=== PATIENT | female | born 1975 | race Caucasian/White ===

== ENCOUNTER 2016-06-29 16:35 | Emergency (ER) | payer MEDICAID ==
[~2016-06-29] VITALS: Ht 157.5 cm; Wt 58.5 kg
[~2016-06-29 16:35] MED LIST: BEN50 PO; CEPH-443 PO; CIPR500T4 PO; HYDR-3498 PO; NITR-58 PO; OMEP20CA16 PO; PHEN-538 PO; PRED20TA PO; RANI150T9 PO; UDMYL PO
[2016-06-29 16:56] VITALS: Ht 157.5 cm; Wt 58.5 kg
--- NOTE | 2016-06-29 18:16 | ERD ---
ER Documentation Chief Complaint Date/Time DATE: 06/29/16 TIME: 18:14 Chief Complaint SORETHROAT AND HOARSENESS X2 DAYS HPI This 40-year-old male presents with sore throat for last 2 days. She may have had tactile fever no fever triage no measured temperature. She has no cough, vomiting, abdominal pain or diarrhea. She has no neck stiffness or rashes ROS All systems reviewed and are negative except as per history of present illness. Medications Home Meds Active Scripts Ciprofloxacin Hcl* (Ciprofloxacin Hcl*) 500 Mg Tablet, 500 MG PO BID for 10 Days , TAB Prov:ABIMAEL SON PA-C 09/14/15 Hydrocodone Bit-Acetaminophen* ([place]*) 5-325 Mg Tab, 1 TAB PO Q6 Y for PAIN, # 10 TAB Prov:ABIMAEL SON PA-C 09/14/15 Ranitidine Hcl* (Zantac*) 150 Mg Tablet, 150 MG PO BID Y for EPIGASTRIC PAIN, # 30 TAB Prov:ELLIOTT FERNANDEZ PA-C 09/09/15 Hydrocodone Bit-Acetaminophen* ([place]*) 5-325 Mg Tab, 1 TAB PO Q6 Y for PAIN, # 14 TAB Prov:ELLIOTT FERNANDEZ PA-C 09/09/15 Nitrofurantoin Monohyd Macrocr* (Macrobid*) 100 Mg Capsr, 100 MG PO BID for 7 Days, CAP Prov:JUSTINE REYNOSO NP 04/12/15 Magaldrate/Simethicone* (Mag-Al Plus Suspension*) 30 Ml Oral.susp, 30 ML PO Q6H Y for GASTROINTESTINAL UPSET, #120 ML Prov:JUSTINE REYNOSO NP 04/12/15 Omeprazole* (Omeprazole*) 20 Mg Capsule.dr, 20 MG PO DAILY, #30 CAP Prov:JUSTINE REYNOSO NP 04/12/15 Phenazopyridine Hcl* (Pyridium*) 200 Mg Tab, 200 MG PO TID Y for DYSURIA, #6 TAB Prov:PEDRO ANDERSON MD 02/11/15 Cephalexin* (Keflex*) 500 Mg Capsule, 500 MG PO QID for 5 Days, CAP Prov:PEDRO ANDERSON MD 02/11/15 Diphenhydramine Hcl* (Benadryl*) 50 Mg Cap, 50 MG PO Q6H Y for ITCHING, #30 CAP Prov:JONATHAN BLACK M. 07/27/14 Prednisone* (Prednisone*) 20 Mg Tab, 20 MG PO DAILY for 3 Days, TAB Prov:JONATHAN BLACK M. 07/27/14 Reported Medications [none] Unknown Strength No Conflict Check 04/12/15 Allergies Allergies: Coded Allergies: No Known Allergy (Unverified , 07/30/14) PMhx/Soc History of Surgery: Yes (GALLSTONE) Anesthesia Reaction: No Hx Neurological Disorder: No Hx Respiratory Disorders: No Hx Cardiac Disorders: No Hx Psychiatric Problems: No Hx Miscellaneous Medical Probl: No Hx Alcohol Use: No Hx Substance Use: No Hx Tobacco Use: No Physical Exam Vitals Vital Signs Date Time Temp Pulse Resp B/P Pulse Ox O2 Delivery O2 Flow Rate FiO2 06/29/16 16:56 99.6 95 2 114/70 98 Physical Exam Const: [] Alert, [id number] Head: Atraumatic Eyes: Normal Conjunctiva ENT: Normal External Ears, Nose and Mouth. Tonsils 3+ with erythema. No exudate and airway patent and uvula midline. Neck: Full range of motion..~ No meningismus. Resp: Clear to auscultation bilaterally Cardio: Regular rate and rhythm, no murmurs Abd: Soft, non tender, non distended. Normal bowel sounds Skin: No petechiae or rashes Back: No midline or flank tenderness Ext: No cyanosis, or edema Neur: Awake and alert Psych: Normal Mood and Affect Procedures/MDM Patient presents with signs of pharyngitis without evidence of airway obstruction or abscess. She was treated with amoxicillin and ibuprofen. There is no evidence of mastoiditis, meningitis, additional complications related to her sore throat. The patient was stable with no new complaints during the ER course. Clinically, there is no current evidence to suggest meningitis, sepsis, acute abdomen, pneumonia, acute coronary syndrome, pulmonary embolism, or any other emergent condition appearing to require further evaluation or hospitalization. The patient should certainly return for any new or worsening symptoms per the aftercare instructions. They should otherwise follow-up with her primary care doctor for reevaluation this week. Departure Diagnosis: Primary Impression: Sore throat Condition: Stable Patient Instructions: Fever Control (Adult), Pharyngitis, Strep (Presumed) Additional Instructions: Cheque otro vez con lira doctor primario en el proximo jaramillo or regresa para mas o nueva simptomas. PEDRO ANDERSON MD June 29, 2016 18:16
[2016-06-29] MEDS ORDERED: IBUP-1542 PO (19:28)
[2016-06-29] MEDS ORDERED: AMO500 PO (19:28)
[2016-06-29 19:35] VITALS: BP 120/66; PULSE 72; RESP 18; TEMP 98.3
== END 2016-06-29 19:36 | disposition home or self-care (01) ==
LOC: FTE 16:35
DX: J02.9 Acute pharyngitis, unspecified (principal)
CPT/HCPCS: 99283

== ENCOUNTER 2016-10-01 15:08 | Emergency (ER) | payer MEDICAID ==
[~2016-10-01] VITALS: Ht 157.5 cm; Wt 62.0 kg
[~2016-10-01 15:08] MED LIST changes: +AMO500 PO; +IBUP-1542 PO
[2016-10-01 15:10] VITALS: Ht 157.5 cm; Wt 62.0 kg
[2016-10-01] MEDS ORDERED: ONDANSETRON (ODT) 4 MG TAB ODT STA (15:49)
[2016-10-01] MEDS ORDERED: HYDROCODONE/APAP (5/325) TAB PO ONE (16:00)
[2016-10-01 16:31] LABS: BASOPHILS % 0.4 % (0.0-2.0); EOSINOPHILS # 0.1 10^3/ul (0.0-0.5); EOSINOPHILS % 0.9 % (0.0-7.0); HEMATOCRIT 41.1 % (37.0-47.0); HEMOGLOBIN 13.5 g/dl (12.0-16.0); LYMPHOCYTES # 1.9 10^3/ul (0.8-2.9); LYMPHOCYTES % 24.3 % (15.0-51.0); MEAN CORPUSCULAR HEMOGLOBIN 29.1 pg (29.0-33.0); MEAN CORPUSCULAR HGB CONC 32.8 g/dl (32.0-37.0); MEAN CORPUSCULAR VOLUME 88.6 fl (82.0-101.0); MEAN PLATELET VOLUME 11.7 fl (7.4-10.4); MONOCYTE # 0.5 10^3/ul (0.3-0.9); MONOCYTES % 5.7 % (0.0-11.0); NEUTROPHILS % 68.4 % (39.0-77.0); PLATELET COUNT 335 10^3/UL (140-415); RED BLOOD COUNT 4.64 10^6/ul (4.20-5.40); RED CELL DISTRIBUTION WIDTH 13.2 % (11.5-14.5); WHITE BLOOD COUNT 7.9 10^3/ul (4.8-10.8)
[2016-10-01 16:40] LABS: ADD UMIC YES; UR ASCORBIC ACID NEGATIVE (NEGATIVE); UR BILIRUBIN (Dip) NEGATIVE (NEGATIVE); UR BLOOD (Dip) 1+ mg/dL (NEGATIVE); UR CLARITY SLIGHTLY CLOUDY (CLEAR); UR COLOR YELLOW (YELLOW); UR GLUCOSE (Dip) NEGATIVE (NEGATIVE); UR KETONES (Dip) NEGATIVE (NEGATIVE); UR LEUKOCYTE ESTERASE (Dip) 2+ Leu/ul (NEGATIVE); UR NITRITE (Dip) NEGATIVE (NEGATIVE); UR RBC 4 /HPF (0-5); UR SQUAMOUS EPITHELIAL CELL FEW /HPF (FEW); UR TOTAL PROTEIN (Dip) NEGATIVE (NEGATIVE); UR UROBILINOGEN (Dip) NEGATIVE (NEGATIVE)
--- NOTE | 2016-10-01 16:41 | RADRPT ---
PROCEDURE: US Abdomen (right upper quadrant). CLINICAL INDICATION: Right upper quadrant abdomen pain. TECHNIQUE: Multiple real-time longitudinal and transverse images of the right upper quadrant of th e abdomen were acquired utilizing a curved array transducer. Images were reviewed on a high-resoluti on PACS workstation. COMPARISON: 09/14/2015. FINDINGS: The liver is normal in size and normal in echogenicity. There is no focal hepatic lesion. Color Doppler and pulsed Doppler sonography demonstrate normal a ntegrade flow in the portal vein. The gallbladder is surgically absent. The bile ducts are normal with the common bile duct measuring 4.7 mm in diameter. The pancreas is not well seen due to overlying bowel gas. No free fluid is present. The right kidney measures 9.7 x 4.2 x 4.8 cm. There is normal echogenicity of the right kidney. T here is no perinephric fluid collection. No hydronephrosis, mass, or calculus is seen. IMPRESSION: 1. Status post cholecystectomy. 2. Pancreas not well seen. 3. Otherwise unremarkable right upper quadrant abdomen ultrasound. 4. No significant change from 09/14/2015. RPTAT: QQ .Osiel Mckenzie MD, MD Date Time Electronically viewed and signed by .Osiel Mckenzie MD, on 10/01/2016 16:40 .R/
[2016-10-01 16:49] LABS: ALBUMIN 4.4 g/dl (3.3-4.9); ALBUMIN/GLOBULIN RATIO 1.15; BILIRUBIN,INDIRECT 0.2 mg/dl (0-1.1); BILIRUBIN,TOTAL 0.2 mg/dl (0.2-1.3); CALCIUM 8.9 mg/dl (8.4-10.2); CREATININE 0.57 mg/dl (0.44-1.00); POTASSIUM 3.8 mmol/L (3.5-5.1); TOTAL PROTEIN 8.2 g/dl (6.1-8.1)
[2016-10-01] MEDS ORDERED: CIPR500T4 PO (17:31)
[2016-10-01] MEDS ORDERED: BISM262O23 PO (17:31)
[2016-10-01] MEDS ORDERED: ACET500C5 PO (17:32)
--- NOTE | 2016-10-01 17:38 | ERD ---
ER Documentation Chief Complaint Date/Time DATE: 10/01/16 TIME: 17:36 Chief Complaint Complains of abdominal pain and diarrhea since saturday HPI This 40-year-old female presents with four-day history of right upper quadrant pain and diarrhea. She denies fevers, vomiting. She has nausea. She has urinary complaints. Patient has a history of gallbladder disease but is uncertain if she still has her gallbladder. ROS All systems reviewed and are negative except as per history of present illness. Medications Home Meds Active Scripts Acetaminophen* (Tylophen*) 500 Mg Capsule, 1 CAP PO Q6H Y for PAIN AND OR ELEVATED TEMP, #15 CAP Prov:PEDRO ANDERSON MD 10/01/16 Bismuth Subsalicylate* (Pepto-Bismol*) 262 Mg/15 Ml Oral.susp, 15 ML PO Q3H Y for DIARRHEA for 4 Days, ML Prov:PEDRO ANDERSON MD 10/01/16 Ciprofloxacin Hcl* (Ciprofloxacin Hcl*) 500 Mg Tablet, 500 MG PO BID for 5 Days , TAB Prov:PEDRO ANDERSON MD 10/01/16 Ibuprofen* (Motrin*) 600 Mg Tab, 600 MG PO Q6, #15 TAB Prov:PEDRO ANDERSON MD 06/29/16 Amoxicillin* (Amoxicillin*) 500 Mg Cap, 500 MG PO TID for 10 Days, CAP Prov:PEDRO ANDERSON MD 06/29/16 Ciprofloxacin Hcl* (Ciprofloxacin Hcl*) 500 Mg Tablet, 500 MG PO BID for 10 Days , TAB Prov:ABIMAEL SON PA-C 09/14/15 Hydrocodone Bit-Acetaminophen* (Bruno*) 5-325 Mg Tab, 1 TAB PO Q6 Y for PAIN, # 10 TAB Prov:ABIMAEL SON PA-C 09/14/15 Ranitidine Hcl* (Zantac*) 150 Mg Tablet, 150 MG PO BID Y for EPIGASTRIC PAIN, # 30 TAB Prov:ELLIOTT FERNANDEZ PA-C 09/09/15 Hydrocodone Bit-Acetaminophen* (Bruno*) 5-325 Mg Tab, 1 TAB PO Q6 Y for PAIN, # 14 TAB Prov:ELLIOTT FERNANDEZ PA-C 09/09/15 Nitrofurantoin Monohyd Macrocr* (Macrobid*) 100 Mg Capsr, 100 MG PO BID for 7 Days, CAP Prov:JUSTINE REYNOSO TIRE MOLD ENGRAVER 04/12/15 Magaldrate/Simethicone* (Mag-Al Plus Suspension*) 30 Ml Oral.susp, 30 ML PO Q6H Y for GASTROINTESTINAL UPSET, #120 ML Prov:JUSTINE REYNOSO TIRE MOLD ENGRAVER 04/12/15 Omeprazole* (Omeprazole*) 20 Mg Capsule.dr, 20 MG PO DAILY, #30 CAP Prov:JUSTINE REYNOSO TIRE MOLD ENGRAVER 04/12/15 Phenazopyridine Hcl* (Pyridium*) 200 Mg Tab, 200 MG PO TID Y for DYSURIA, #6 TAB Prov:PEDRO ANDERSON MD 02/11/15 Cephalexin* (Keflex*) 500 Mg Capsule, 500 MG PO QID for 5 Days, CAP Prov:PEDRO ANDERSON MD 02/11/15 Diphenhydramine Hcl* (Benadryl*) 50 Mg Cap, 50 MG PO Q6H Y for ITCHING, #30 CAP Prov:JONATHAN BLACK 07/27/14 Prednisone* (Prednisone*) 20 Mg Tab, 20 MG PO DAILY for 3 Days, TAB Prov:JONATHAN BLACK 07/27/14 Reported Medications [none] Unknown Strength No Conflict Check 04/12/15 Allergies Allergies: Coded Allergies: No Known Allergy (Unverified , 06/29/16) PMhx/Soc Medical and Surgical Hx: pt denies Medical Hx, pt denies Surgical Hx History of Surgery: Yes (GALLSTONE; csection) Anesthesia Reaction: No Hx Neurological Disorder: No Hx Respiratory Disorders: No Hx Cardiac Disorders: No Hx Psychiatric Problems: No Hx Miscellaneous Medical Probl: No Hx Alcohol Use: No Hx Substance Use: No Hx Tobacco Use: No Smoking Status: Never smoker Physical Exam Vitals Vital Signs Date Time Temp Pulse Resp B/P Pulse Ox O2 Delivery O2 Flow Rate FiO2 10/01/16 15:10 98.1 95 20 108/60 99 Physical Exam Const: [] Letter, [id number] Head: Atraumatic Eyes: Normal Conjunctiva ENT: Normal External Ears, Nose and Mouth. Neck: Full range of motion..~ No meningismus. Resp: Clear to auscultation bilaterally Cardio: Regular rate and rhythm, no murmurs Abd: Soft, mildly tender in the right upper quadrant. No change McBurney's point. No rebound. non distended. Normal bowel sounds Skin: No petechiae or rashes Back: No midline or flank tenderness Ext: No cyanosis, or edema Neur: Awake and alert Psych: Normal Mood and Affect Result Diagram: 10/01/16 1610 10/01/16 1610 Results 24 hrs Laboratory Tests Test 10/01/16 16:02 10/01/16 16:10 Urine Color YELLOW Urine Clarity SLIGHTLY CLOUDY Urine pH 5.0 Urine Specific [place] 1.010 Urine Ketones NEGATIVEmg/dL Urine Nitrite NEGATIVEmg/dL Urine Bilirubin NEGATIVEmg/dL Urine Urobilinogen NEGATIVEmg/dL Urine Leukocyte Esterase 2+Ariana/ul Urine Microscopic RBC 4/HPF Urine Microscopic WBC 2/HPF Urine Squamous Epithelial Cells FEW/HPF Urine Hemoglobin 1+mg/dL Urine Glucose NEGATIVEmg/dL Urine Total Protein NEGATIVEmg/dl White Blood Count 7.910^3/ul Red Blood Count 4.6410^6/ul Hemoglobin 13.5g/dl Hematocrit 41.1% Mean Corpuscular Volume 88.6fl Mean Corpuscular Hemoglobin 29.1pg Mean Corpuscular Hemoglobin Concent 32.8g/dl Red Cell Distribution Width 13.2% Platelet Count 47131^3/UL Mean Platelet Volume 11.7fl Neutrophils % 68.4% Lymphocytes % 24.3% Monocytes % 5.7% Eosinophils % 0.9% Basophils % 0.4% Nucleated Red Blood Cells % 0.0/100WBC Neutrophils # (Manual) 510^3/ul Lymphocytes # 1.910^3/ul Monocytes # 0.510^3/ul Eosinophils # 0.110^3/ul Basophils # 0.010^3/ul Nucleated Red Blood Cells # 0.010^3/ul Sodium Level 138mmol/L Potassium Level 3.8mmol/L Chloride Level 103mmol/L Carbon Dioxide Level 25mmol/L Anion Gap 14 Blood Urea Nitrogen 9mg/dl Creatinine 0.57mg/dl Glucose Level 89mg/dl Calcium Level 8.9mg/dl Total Bilirubin 0.2mg/dl Direct Bilirubin 0.00mg/dl Indirect Bilirubin 0.2mg/dl Aspartate Amino Transf (AST/SGOT) 29IU/L Alanine Aminotransferase (ALT/SGPT) 31IU/L Alkaline Phosphatase 88IU/L Total Protein 8.2g/dl Albumin 4.4g/dl Globulin 3.80g/dl Albumin/Globulin Ratio 1.15 Lipase 196U/L Current Medications Medications (Trade) Dose Ordered Sig/Sandeep Route PRN Reason Start Time Stop Time Status Last Admin Dose Admin Acetaminophen/ Hydrocodone Bitart (Bruno (5/325)) 1 tab ONCE ONCE PO 10/01/16 16:00 10/01/16 16:01 DC 10/01/16 16:11 Ondansetron HCl (Zofran Odt) 8 mg ONCE STAT ODT 10/01/16 15:49 10/01/16 15:52 DC 10/01/16 16:11 Procedures/MDM Urine shows leukocyte esterase with few bacteria. Nitrates negative. HCG is negative. CBC and CMP normal lipase normal. Right upper quadrant ultrasound shows status post cholecystectomy without acute findings. Patient was given Bruno 5 mg by mouth and Zofran 8 mg by mouth. Patient had a benign abdomen on serial exam. Patient presents with right upper quadrant pain of uncertain etiology. Current signs and symptoms do not suggest hypoxemia, pneumonia, appendicitis, PID, tubo-ovarian abscess, ectopic , additional causes of presenting complaints. I suspect she has gastroenteritis and will be treated for UTI with Cipro and Pepto-Bismol, Tylenol , and observation at home. The patient was stable with no new complaints during the ER course. Clinically, there is no current evidence to suggest meningitis, sepsis, acute abdomen, pneumonia, acute coronary syndrome, pulmonary embolism, or any other emergent condition appearing to require further evaluation or hospitalization. The patient should certainly return for any new or worsening symptoms per the aftercare instructions. They should otherwise follow-up with her primary care doctor for reevaluation this week. Departure Diagnosis: Primary Impression: Diarrhea Diarrhea type: unspecified type Qualified Code: R19.7 - Diarrhea, unspecified type Additional Impression: Abdominal pain Abdominal location: upper abdomen, unspecified Qualified Code: R10.10 - Pain of upper abdomen Condition: Stable Patient Instructions: Abdominal Pain, Vomiting And Diarrhea, Nonspecific (Adult ) Additional Instructions: TIENE POQUITO INFECCION EN ORINA Y VAMOS A TRATAR. OTRO Examines normal hoy. Cheque otro vez con lira doctor primario en el proximo jaramillo or regresa para mas o nueva simptomas. PEDRO ANDERSON MD Oct 01, 2016 17:38
== END 2016-10-01 17:48 | disposition home or self-care (01) ==
LOC: FTE 15:08
DX: R19.7 Diarrhea, unspecified (principal)
CPT/HCPCS: 76705; 80053; 81001; 83690; 85025; Z7502; Z7610

== ENCOUNTER 2016-11-20 12:56 | Emergency (ER) | payer MEDICAID ==
[~2016-11-20] VITALS: Ht 157.5 cm; Wt 61.0 kg
[~2016-11-20 12:56] MED LIST changes: +ACET500C5 PO; -AMO500 PO; +AMOX500C2 PO; +BISM262O23 PO
[2016-11-20 12:58] VITALS: Ht 157.5 cm; Wt 61.0 kg
[2016-11-20] MEDS ORDERED: ONDANSETRON 4 MG INJ IV STA (14:35)
[2016-11-20] MEDS ORDERED: morphine 4 MG/ML VIAL IV STA (14:35)
--- NOTE | 2016-11-20 15:03 | ERD ---
ER Documentation Chief Complaint Date/Time DATE: 11/20/16 TIME: 15:00 Chief Complaint right upper quadrant pain,n/v.hx of gallstones HPI This is 41-year-old female who presents the emergency department today complaining of upper abdominal pain and nausea for the past couple of weeks and worse over the past couple of days. States that she has a history of gastritis. States that at one time she had gallstones and has had surgery in the past but is unsure if they took her gallbladder out. States she has had kidney infections in the past does have some dysuria.. States she also has some diarrhea. denies any fevers or chills. ROS All systems reviewed and are negative except as per history of present illness. Medications Home Meds Active Scripts Acetaminophen* (Tylophen*) 500 Mg Capsule, 1 CAP PO Q6H Y for PAIN AND OR ELEVATED TEMP, #30 CAP Prov:KALEB CALDERON PA-C 11/20/16 Ondansetron Hcl* (Zofran*) 4 Mg Tablet, 4 MG PO Q6H for NAUSEA AND/OR VOMITING, #30 TAB Prov:KALEB CALDERON PA-C 11/20/16 Cephalexin* (Keflex*) 500 Mg Capsule, 500 MG PO QID for 7 Days, CAP Prov:KALEB CALDERON PA-C 11/20/16 Acetaminophen* (Tylophen*) 500 Mg Capsule, 1 CAP PO Q6H Y for PAIN AND OR ELEVATED TEMP, #15 CAP Prov:PEDRO ANDERSON MD 10/01/16 Bismuth Subsalicylate* (Pepto-Bismol*) 262 Mg/15 Ml Oral.susp, 15 ML PO Q3H Y for DIARRHEA for 4 Days, ML Prov:PEDRO ANDERSON MD 10/01/16 Ciprofloxacin Hcl* (Ciprofloxacin Hcl*) 500 Mg Tablet, 500 MG PO BID for 5 Days , TAB Prov:PEDRO ANDERSON MD 10/01/16 Ibuprofen* (Motrin*) 600 Mg Tab, 600 MG PO Q6, #15 TAB Prov:PEDRO ANDERSON MD 06/29/16 Amoxicillin* (Amoxicillin*) 500 Mg Cap, 500 MG PO TID for 10 Days, CAP Prov:PEDRO ANDERSON MD 06/29/16 Ciprofloxacin Hcl* (Ciprofloxacin Hcl*) 500 Mg Tablet, 500 MG PO BID for 10 Days , TAB Prov:ABIMAEL SON PA-C 09/14/15 Hydrocodone Bit-Acetaminophen* ([place]*) 5-325 Mg Tab, 1 TAB PO Q6 Y for PAIN, # 10 TAB Prov:ABIMAEL SON PA-C 09/14/15 Ranitidine Hcl* (Zantac*) 150 Mg Tablet, 150 MG PO BID Y for EPIGASTRIC PAIN, # 30 TAB Prov:ELLIOTT FERNANDEZ PA-C 09/09/15 Hydrocodone Bit-Acetaminophen* ([place]*) 5-325 Mg Tab, 1 TAB PO Q6 Y for PAIN, # 14 TAB Prov:ELLIOTT FERNANDEZ PA-C 09/09/15 Nitrofurantoin Monohyd Macrocr* (Macrobid*) 100 Mg Capsr, 100 MG PO BID for 7 Days, CAP Prov:JUSTINE REYNOSO NP 04/12/15 Magaldrate/Simethicone* (Mag-Al Plus Suspension*) 30 Ml Oral.susp, 30 ML PO Q6H Y for GASTROINTESTINAL UPSET, #120 ML Prov:JUSTINE REYNOSO NP 04/12/15 Omeprazole* (Omeprazole*) 20 Mg Capsule.dr, 20 MG PO DAILY, #30 CAP Prov:JUSTINE REYNOSO NP 04/12/15 Phenazopyridine Hcl* (Pyridium*) 200 Mg Tab, 200 MG PO TID Y for DYSURIA, #6 TAB Prov:PEDRO ANDERSON MD 02/11/15 Cephalexin* (Keflex*) 500 Mg Capsule, 500 MG PO QID for 5 Days, CAP Prov:PEDRO ANDERSON MD 02/11/15 Diphenhydramine Hcl* (Benadryl*) 50 Mg Cap, 50 MG PO Q6H Y for ITCHING, #30 CAP Prov:JONATHAN BLACK 07/27/14 Prednisone* (Prednisone*) 20 Mg Tab, 20 MG PO DAILY for 3 Days, TAB Prov:JONATHAN BLACK 07/27/14 Reported Medications [none] Unknown Strength No Conflict Check 04/12/15 Allergies Allergies: Coded Allergies: No Known Allergy (Unverified , 06/29/16) PMhx/Soc History of Surgery: Yes (GALLSTONE; csection) Anesthesia Reaction: No Hx Neurological Disorder: No Hx Respiratory Disorders: No Hx Cardiac Disorders: No Hx Psychiatric Problems: No Hx Miscellaneous Medical Probl: No Hx Alcohol Use: No Hx Substance Use: No Hx Tobacco Use: No Smoking Status: Never smoker Physical Exam Vitals Vital Signs Date Time Temp Pulse Resp B/P Pulse Ox O2 Delivery O2 Flow Rate FiO2 11/20/16 12:58 98.8 82 18 116/74 98 Physical Exam Const: NAD Head: Atraumatic Eyes: Normal Conjunctiva ENT: Normal External Ears, Nose and Mouth. Neck: Full range of motion..~ No meningismus. Resp: Clear to auscultation bilaterally Cardio: Regular rate and rhythm, no murmurs Abd: Soft, RUQ tenderness and mild epigastric tenderness non distended. Normal bowel sounds no lower abdominal pain. Skin: No petechiae or rashes Back: No midline or flank tenderness Ext: No cyanosis, or edema Neur: Awake and alert Psych: Normal Mood and Affect Result Diagram: 11/20/16 1505 11/20/16 1505 Results 24 hrs Laboratory Tests Test 11/20/16 15:05 White Blood Count 6.410^3/ul Red Blood Count 4.3010^6/ul Hemoglobin 12.2g/dl Hematocrit 38.5% Mean Corpuscular Volume 89.5fl Mean Corpuscular Hemoglobin 28.4pg Mean Corpuscular Hemoglobin Concent 31.7g/dl Red Cell Distribution Width 13.2% Platelet Count 86708^3/UL Mean Platelet Volume 12.3fl Neutrophils % 57.5% Lymphocytes % 32.8% Monocytes % 6.9% Eosinophils % 1.9% Basophils % 0.6% Nucleated Red Blood Cells % 0.0/100WBC Neutrophils # 3.710^3/ul Lymphocytes # 2.110^3/ul Monocytes # 0.410^3/ul Eosinophils # 0.110^3/ul Basophils # 0.010^3/ul Nucleated Red Blood Cells # 0.010^3/ul Urine Color YELLOW Urine Clarity SLIGHTLY CLOUDY Urine pH 5.0 Urine Specific [place] 1.024 Urine Ketones NEGATIVEmg/dL Urine Nitrite NEGATIVEmg/dL Urine Bilirubin NEGATIVEmg/dL Urine Urobilinogen NEGATIVEmg/dL Urine Leukocyte Esterase 2+Ariana/ul Urine Microscopic RBC 5/HPF Urine Microscopic WBC 11/HPF Urine Squamous Epithelial Cells FEW/HPF Urine Bacteria FEW/HPF Urine Mucus MANY/HPF Urine Hemoglobin 2+mg/dL Urine Glucose NEGATIVEmg/dL Urine Total Protein NEGATIVEmg/dl Sodium Level 141mmol/L Potassium Level 3.9mmol/L Chloride Level 106mmol/L Carbon Dioxide Level 28mmol/L Anion Gap 11 Blood Urea Nitrogen 10mg/dl Creatinine 0.55mg/dl Glucose Level 97mg/dl Calcium Level 8.7mg/dl Total Bilirubin 0.1mg/dl Direct Bilirubin 0.00mg/dl Indirect Bilirubin 0.1mg/dl Aspartate Amino Transf (AST/SGOT) 20IU/L Alanine Aminotransferase (ALT/SGPT) 18IU/L Alkaline Phosphatase 83IU/L Total Protein 7.8g/dl Albumin 4.1g/dl Globulin 3.70g/dl Albumin/Globulin Ratio 1.10 Lipase 162U/L Current Medications Medications (Trade) Dose Ordered Sig/Sandeep Route PRN Reason Start Time Stop Time Status Last Admin Dose Admin Morphine Sulfate (morphine) 4 mg ONCE STAT IV 11/20/16 14:35 11/20/16 14:36 Cancel Ondansetron HCl (Zofran Inj) 4 mg ONCE STAT IV 11/20/16 14:35 11/20/16 14:36 DC 11/20/16 15:31 Acetaminophen/ Hydrocodone Bitart ([place] (5/325)) 1 tab ONCE ONCE PO 11/20/16 15:30 11/20/16 15:31 DC 11/20/16 15:31 IAGNOSTIC IMAGING REPORT Patient: MIGUEL BUCKLEY : 1975 Age: 41 Sex: F MR #: [id number] DOS: 11/20/16 1437 Ordering MD: KALEB CALDERON PA-C Location: [facility] Room/Bed: PROCEDURE: Right upper quadrant ultrasound CLINICAL INDICATION: Abdominal pain TECHNIQUE: Multiple real-time images were acquired of the patient's abdomen and right retroperitoneum utilizing a high resolution transducer. COMPARISON: 10/01/2016 FINDINGS: The liver is normal in echogenicity and measures cm. No focal hepatic masses are seen. Gallbladder surgically absent. The intra and extrahepatic bile ducts are normal in caliber. The common bile duct measures 5.2 mm. Pancreas is not visualized due to overlying bowel gas. Survey views of the right kidney demonstrate no evidence of hydronephrosis or renal calculi. The right kidney measures 10.3 cm. IMPRESSION: 1. Status post cholecystectomy. 2. No evidence of biliary duct dilatation or obvious choledocholithiasis. 3. Pancreas not visualized. 4. Otherwise unremarkable right upper quadrant ultrasound RPTAT: HH .Brent Griggs MD, Date Time Electronically viewed and signed by .Brent Griggs MD, on 11/20/2016 15:33 .W/ CC: KALEB CALDERON PA-C Procedures/MDM This is a 41-year-old female who presents to the emergency department today for right-sided upper abdominal pain and nausea for the past couple of weeks and worse over the past couple of days. Patient was unsure if she had had her gallbladder removed after her gallstones. Upon review of patient's medical records it appears she had a CT scan last year that showed a surgically absent gallbladder. I did repeat an ultrasound today to rule out a retained stone as well as obtain laboratory workup Laboratory workup is no elevated white blood cell count. She is not anemic. Platelets are within normal limits. Electrolytes are within normal limits. Glucose is within normal limits. Liver enzymes are within normal limits. Bilirubin is within normal limits. Lipase is within normal limits. UA shows 2+ leukocyte esterase. Negative nitrates. There are 11 microscopic white blood cells. Urine testis negative US shows status post cholecystectomy. There is no evidence of biliary duct dilatation or obvious choledocholithiasis.Common bile duct measures 5.2 mm in maximal dimension There is no evidence of hydronephrosis or renal calculi. Symptoms at this time is consistent with right upper quadrant abdominal pain uncertain etiology however may be due to urinary tract infection. There is no evidence to suggest acute surgical abdomen at this time. Patient was given [place] and Zofran here in the emergency department. She declined Morphine Patient will be given a prescription for Keflex, Zofran and Tylenol for home. At this time the patient is stable for discharge and outpatient management. Patient should follow up with their PCP in the next 1-2 days. They may return to the emergency department sooner for any persistent or worsening of symptoms. Patient understood and agreed with the plan. Departure Diagnosis: Primary Impression: Abdominal pain Abdominal location: right upper quadrant Qualified Code: R10.11 - Right upper quadrant abdominal pain Additional Impression: UTI (urinary tract infection) Urinary tract infection type: site unspecified Hematuria presence: without hematuria Qualified Code: N39.0 - Urinary tract infection without hematuria, site unspecified Condition: Fair KALEB CALDERON PA-C Nov 20, 2016 15:02
[2016-11-20 15:20] LABS: BASOPHILS % 0.6 % (0.0-2.0); EOSINOPHILS # 0.1 10^3/ul (0.0-0.5); EOSINOPHILS % 1.9 % (0.0-7.0); HEMATOCRIT 38.5 % (37.0-47.0); HEMOGLOBIN 12.2 g/dl (12.0-16.0); LYMPHOCYTES # 2.1 10^3/ul (0.8-2.9); LYMPHOCYTES % 32.8 % (15.0-51.0); MEAN CORPUSCULAR HEMOGLOBIN 28.4 pg (29.0-33.0); MEAN CORPUSCULAR HGB CONC 31.7 g/dl (32.0-37.0); MEAN CORPUSCULAR VOLUME 89.5 fl (82.0-101.0); MEAN PLATELET VOLUME 12.3 fl (7.4-10.4); MONOCYTE # 0.4 10^3/ul (0.3-0.9); MONOCYTES % 6.9 % (0.0-11.0); NEUTROPHIL # 3.7 10^3/ul (1.6-7.5); NEUTROPHILS % 57.5 % (39.0-77.0); PLATELET COUNT 314 10^3/UL (140-415); RED CELL DISTRIBUTION WIDTH 13.2 % (11.5-14.5); WHITE BLOOD COUNT 6.4 10^3/ul (4.8-10.8)
[2016-11-20] MEDS ORDERED: HYDROCODONE/APAP (5/325) TAB PO ONE (15:30)
[2016-11-20 15:32] LABS: ADD UMIC YES; UR ASCORBIC ACID NEGATIVE (NEGATIVE); UR BACTERIA FEW /HPF (NONE SEEN); UR BILIRUBIN (Dip) NEGATIVE (NEGATIVE); UR BLOOD (Dip) 2+ mg/dL (NEGATIVE); UR CLARITY SLIGHTLY CLOUDY (CLEAR); UR COLOR YELLOW (YELLOW); UR GLUCOSE (Dip) NEGATIVE (NEGATIVE); UR KETONES (Dip) NEGATIVE (NEGATIVE); UR LEUKOCYTE ESTERASE (Dip) 2+ Leu/ul (NEGATIVE); UR MUCUS MANY /HPF (NONE SEEN); UR NITRITE (Dip) NEGATIVE (NEGATIVE); UR RBC 5 /HPF (0-5); UR SPECIFIC GRAVITY (Dip) 1.024 (1.003-1.030); UR SQUAMOUS EPITHELIAL CELL FEW /HPF (FEW); UR TOTAL PROTEIN (Dip) NEGATIVE (NEGATIVE); UR UROBILINOGEN (Dip) NEGATIVE (NEGATIVE)
--- NOTE | 2016-11-20 15:34 | RADRPT ---
PROCEDURE: Right upper quadrant ultrasound CLINICAL INDICATION: Abdominal pain TECHNIQUE: Multiple real-time images were acquired of the patient's abdomen and right retroperiton eum utilizing a high resolution transducer. COMPARISON: 10/01/2016 FINDINGS: The liver is normal in echogenicity and measures cm. No focal hepatic masses are seen. Gallbladde r surgically absent. The intra and extrahepatic bile ducts are normal in caliber. The common bile duct measures 5.2 mm. Pancreas is not visualized due to overlying bowel gas. Survey views of the right kidney demonstrate no evidence of hydronephrosis or renal calculi. The ri ght kidney measures 10.3 cm. IMPRESSION: 1. Status post cholecystectomy. 2. No evidence of biliary duct dilatation or obvious choledocholithiasis. 3. Pancreas not visualized. 4. Otherwise unremarkable right upper quadrant ultrasound RPTAT: HH .Brent Griggs MD, Date Time Electronically viewed and signed by .Brent Griggs MD, MD on 11/20/2016 15:33 .W/
[2016-11-20 15:35] LABS: ALBUMIN 4.1 g/dl (3.3-4.9); ALBUMIN/GLOBULIN RATIO 1.1; BILIRUBIN,INDIRECT 0.1 mg/dl (0-1.1); BILIRUBIN,TOTAL 0.1 mg/dl (0.2-1.3); CALCIUM 8.7 mg/dl (8.4-10.2); CREATININE 0.55 mg/dl (0.44-1.00); POTASSIUM 3.9 mmol/L (3.5-5.1); TOTAL PROTEIN 7.8 g/dl (6.1-8.1)
[2016-11-20] MEDS ORDERED: CEPH-443 PO (16:15)
[2016-11-20] MEDS ORDERED: ONDA4TAB8 PO (16:15)
[2016-11-20] MEDS ORDERED: ACET500C5 PO (16:16)
[2016-11-20 16:27] VITALS: BP 108/79; PULSE 66; RESP 18
== END 2016-11-20 16:28 | disposition home or self-care (01) ==
LOC: FTE 12:56
DX: N39.0 Urinary tract infection, site not specified (principal)
CPT/HCPCS: 36415; 76705; 80053; 81001; 83690; 85025; 96374; J2405; Z7502; Z7610

== ENCOUNTER 2017-10-08 14:50 | Emergency (ER) | END 2017-10-08 17:30 | disposition home or self-care (01) ==